=== PATIENT | female | born 1990 | race Caucasian/White ===

== ENCOUNTER 2024-01-26 02:15 | Emergency (ER) | payer MEDICAID ==
[~2024-01-26] VITALS: Ht 165.1 cm; Wt 71.7 kg
[~2024-01-26 02:15] MED LIST: CEPH250C16 PO; FERR325E14 PO; IBUP-974 PO
[2024-01-26 02:18] VITALS: BP 126/78; PULSE 81; RESP 18; TEMP 98.3; O2SAT 100
--- NOTE | 2024-01-26 02:26 | NUR ---
amb to bed 6
[2024-01-26] MEDS: ALUMINUM HYD/MAG/SIMETHICONE 30 ML UDC PO ONE (02:39)
[2024-01-26] MEDS: FAMOTIDINE 20 MG TAB PO ONE (02:39)
[2024-01-26 02:41] LABS: BASOPHILS % (AUTO) 0.6 % (0.0-2.0); EOSINOPHILS # (AUTO) 0.2 K/uL (0-0.4); EOSINOPHILS % (AUTO) 3.1 % (0.0-4.0); HEMATOCRIT 35.4 % (36-48); HEMOGLOBIN 11.8 g/dL (12.0-16.0); LYMPHOCYTES # (AUTO) 2.8 K/uL (2.5-16.5); LYMPHOCYTES % (AUTO) 43.3 % (20.5-51.1); MEAN CORPUSCULAR HEMOGLOBIN 29 pg (27-31); MEAN CORPUSCULAR HGB CONC 33 g/dL (33-37); MEAN CORPUSCULAR VOLUME 85.4 fL (80-94); MONOCYTES # (AUTO) 0.6 K/uL (0.8-1.0); MONOCYTES % (AUTO) 9.6 % (1.7-9.3); NEUTROPHILS # (AUTO) 2.8 K/uL (1.8-7.7); NEUTROPHILS % (AUTO) 43.4 % (42.2-75.2); PLATELET COUNT (AUTO) 265 K/uL (140-450); RED BLOOD CELL COUNT(AUTO) 4.15 MIL/uL (4.20-5.40); RED CELL DISTRIBUTION WIDTH 16.9 % (11.6-13.7); WHITE BLOOD COUNT (AUTO) 6.4 K/uL (4.8-10.8)
[2024-01-26 02:49] LABS: ANION GAP 13.4 (8-16); CALCIUM 9.1 mg/dL (8.5-10.1); CARBON DIOXIDE 27.1 mmol/L (21-32); CREATININE 0.7 mg/dL (0.6-1.3); POTASSIUM 3.5 mmol/L (3.5-5.1)
[2024-01-26] MEDS ORDERED: OMEP20EC11 PO (03:11)
[2024-01-26] MEDS ORDERED: MAG-27 PO (03:11)
[2024-01-26 03:18] VITALS: BP 126/78; PULSE 81; RESP 18; TEMP 98.3; O2SAT 100
--- NOTE | 2024-01-26 03:18 | NUR ---
Patient discharged with v/s stable. Written and verbal after care instructions given and explained. Patient alert, oriented and verbalized understanding of instructions. Ambulatory with steady gait. All questions addressed prior to discharge. ID band removed. Patient advised to follow up with PMD. Rx of MYLANTA PRILOSEC given. Patient educated on indication of medication including possible reaction and side effects. Opportunity to ask questions provided and answered.
== END 2024-01-26 03:18 | disposition home or self-care (01) ==
LOC: MED 02:15
DX: R07.9 Chest pain, unspecified (principal); Z79.899 Other long term (current) drug therapy
CPT/HCPCS: 36415; 71045; 80048; 84484; 85025; 93005; 99285; Q0092